=== PATIENT | female | born 1965 | race Hispanic/Latino ===

== ENCOUNTER 2021-02-24 16:56 | Emergency (ER) | payer BC ==
[~2021-02-24] VITALS: Ht 160 cm; Wt 81.9 kg
[2021-02-24] MEDS ORDERED: COMBIVENT RESPIMAT 100-20MCG INHALER 4GM INH ONE (17:50)
[2021-02-24] MEDS ORDERED: dexameTHASONE 20MG/5ML VIAL (J1100 PER 1MG) IV ONE (17:50)
--- NOTE | 2021-02-24 17:54 | REP ---
INDICATION: CHEST PAIN COMPARISON: None. TECHNIQUE: Portable AP view of the chest FINDINGS: The mediastinum and cardiac silhouette are within normal limits for portable technique. The lung condon are clear without acute consolidation, effusion, or pneumothorax. Skeletal structures are intact. IMPRESSION: No acute cardiopulmonary process appreciated. <Electronically signed by Santiago Gastelum > 02/24/21 [id number]
[2021-02-24 18:06] LABS: BASO % 0.5 % (0.0-1.0); EOS # 0.2 10^3/uL (0.0-0.5); EOS % 3.5 % (0.0-3.0); HEMATOCRIT 44.5 % (36.0-47.0); HEMOGLOBIN 14.1 g/dl (12.0-15.5); LYMPH # 1.9 10^3/uL (1.5-5.0); MEAN CORPUSCULAR HEMOGLOBIN 28.3 pg (27.0-33.0); MEAN CORPUSCULAR HGB CONC 31.7 g/dl (32.0-36.5); MEAN CORPUSCULAR VOLUME 89.2 fl (80.0-96.0); MONO # 0.4 10^3/uL (0.0-0.8); MONO % 7.4 % (2.0-8.0); NEUTROPHILS # 3.4 10^3/uL (1.5-8.5); NEUTROPHILS % 57.1 % (36.0-66.0); PLATELET COUNT, AUTOMATED 224 10^3/uL (150-450); RED BLOOD COUNT 4.99 10^6/uL (4.00-5.40)
[2021-02-24 18:28] LABS: ALBUMIN 3.5 GM/DL (3.2-5.2); ALT/SGPT 16 U/L (12-78); BILIRUBIN,DIRECT 0.1 MG/DL (0.0-0.2); BILIRUBIN,TOTAL 0.3 MG/DL (0.2-1.0); BLOOD UREA NITROGEN 13 MG/DL (7-18); CALCIUM LEVEL 9.5 MG/DL (8.5-10.1); CARBON DIOXIDE LEVEL 28 MEQ/L (21-32); CHLORIDE LEVEL 108 MEQ/L (98-107); CK-MB VALUE MASS < 1.0 NG/ML (<3.6); CPK CREATINE PHOSPHOKINASE 62 U/L (26-192); CREATININE FOR GFR 0.95 MG/DL (0.55-1.30); GLOMERULAR FILTRATION RATE > 60.0 (>51); GLUCOSE, FASTING 97 MG/DL (70-100); LIPASE 110 U/L (73-393); MB/CK RELATIVE INDEX 1.61 (< OR =4); POTASSIUM SERUM 4.1 MEQ/L (3.5-5.1); SODIUM LEVEL 141 MEQ/L (136-145); TROPONIN I < 0.02 NG/ML (< 0.10)
[2021-02-24 18:40] LABS: INR 0.91; PROTHROMBIN TIME 12.4 SECONDS (12.5-14.3)
[2021-02-24 18:41] LABS: PARTIAL THROMBOPLASTIN TIME 31.4 SECONDS (24.2-38.5)
[2021-02-24 18:44] LABS: D-DIMER QUANT 505.63 ng/ml (<500)
[2021-02-24] MEDS ORDERED: ISOVUE-370 76% 100ML VIAL As Ordered ONE (19:50)
--- NOTE | 2021-02-24 20:00 | ECGEPIP ---
[facility] - ED Test Date: 2021-02-24 Pat Name: ESTRELLA CONTRERAS Department: Room: - Gender: Female Mate Ship: : 1965 Requested By: MAURICE Weinstein Order Number: [id number] Reading MD: Maurice Whitehead Measurements Intervals [place] Rate: 70 P: 66 HI: 172 QRS: 5 QRSD: 74 T: 56 QT: 386 QTc: 416 Interpretive Statements Normal sinus rhythm Comparison tracing not on file Electronically Signed on 02-24-2021 20:00:10 EDT by Maurice Whitehead
--- NOTE | 2021-02-24 20:43 | REPVR ---
PROCEDURE INFORMATION: Exam: CTA Chest With Contrast Exam date and time: 02/24/2021 7:55 PM Age: 55 years old Clinical indication: Pain; Chest pressure; Additional info: Chest pain TECHNIQUE: Imaging protocol: Computed tomographic angiography of the chest with contrast. 3D rendering (Not supervised by radiologist): MIP and/or 3D reconstructed images were created by the technologist. Radiation optimization: All CT scans at this facility use at least one of these dose optimization techniques: automated exposure control; mA and/or kV adjustment per patient size (includes targeted exams where dose is matched to clinical indication); or iterative reconstruction. Contrast material: ISOVUE 370; Contrast volume: 75 ml; Contrast route: INTRAVENOUS (IV); COMPARISON: CR PORTABLE CHEST X-RAY 02/24/2021 5:18 PM FINDINGS: Pulmonary arteries: There are no pulmonary emboli. Aorta: There is mild atherosclerosis in the thoracic aorta. There is no aortic dissection or aneurysm. Lungs: Calcified granuloma lingular and left lower lobes. Ground-glass opacities consistent with atelectasis and less likely mosaic perfusion. Lungs otherwise clear. Pleural spaces: Unremarkable. No pneumothorax. No pleural effusion. Heart: Unremarkable. No cardiomegaly. No pericardial effusion. Lymph nodes: Calcified left mediastinal lymph nodes. Bones/joints: The spine demonstrates mild degenerative changes. Soft tissues: Unremarkable. IMPRESSION: 1. There is no aortic dissection or aneurysm. 2. There are no pulmonary emboli. 3. Findings consistent with remote intrathoracic granulomatous infection. Electronically signed by: Jorge Hickman On 02/24/2021 20:42:53 PM
[2021-02-24 20:54] LABS: CK-MB VALUE MASS < 1.0 NG/ML (<3.6); CPK CREATINE PHOSPHOKINASE 67 U/L (26-192); MB/CK RELATIVE INDEX 1.49 (< OR =4); TROPONIN I < 0.02 NG/ML (< 0.10)
[2021-02-24 21:51] VITALS: BP 142/80
--- NOTE | 2021-02-26 08:42 | ECGEPIP ---
[facility] - ED Test Date: 2021-02-24 Pat Name: ESTRELLA CONTRERAS Department: Room: - Gender: Female Floor Manager: yakelin : 1965 Requested By: DEREK Weinstein Order Number: [id number] Reading MD: Sandrine Egan Measurements Intervals [place] Rate: 76 P: 67 AL: 180 QRS: -5 QRSD: 74 T: 61 QT: 390 QTc: 438 Interpretive Statements Sinus rhythm with occasional premature ventricular complexes Nonspecific T wave abnormality increased ectopy 02/24/21 Electronically Signed on 02-26-2021 8:42:48 EDT by Sandrine Egan
== END 2021-02-24 21:54 | disposition home or self-care (01) ==
LOC: M ED 16:56
DX: R07.9 Chest pain, unspecified (principal); I70.0 Atherosclerosis of aorta; R06.02 Shortness of breath; R05 Cough; F17.200 Nicotine dependence, unspecified, uncomplicated; Z88.8 Allergy status to other drugs, medicaments and biological substances
CPT/HCPCS: 71045; 71275; 80048; 80076; 82550; 82553; 83690; 84484; 85025; 85379; 85610; 85730; 87798; 93005; 93041; 94640; 94760; 96374; 99285; J1100; Q9967